=== PATIENT | female | born 1980 | race Caucasian/White ===

== ENCOUNTER 2022-12-07 13:50 | Emergency (ER) | payer OTHER ==
[2022-12-07 14:13] VITALS: BP 145/83
--- NOTE | 2022-12-07 15:11 | ED Physician Documentation ---
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 Mom of 2 kids Buying a house Hasn't been able to sleep x 2 weeks. 3 hrs of sleep night before last Tried CBD, benadryl, melatonin s relief. PD PAST MEDICAL HISTORY - Past Medical History Past Medical History: No - Past Surgical History Past Surgical History: No - Present Medications Home Medications: Ambulatory Orders Medication Instructions Recorded Confirmed Zolpidem Tartrate [Zolpidem 6.25 mg PO QPM PRN #30 tab 12/07/22 Tartrate ER] - Allergies Allergies/Adverse Reactions: Allergies Allergy/AdvReac Type Severity Reaction Status Date / Time prochlorperazine Allergy Headache Verified 12/07/22 14:10 [From Compazine] - Social History Does the pt smoke?: No Smoking Status: Never smoker Does the pt drink ETOH?: No Does the pt have substance abuse?: No - Immunizations Immunizations are current?: Yes PD ED PE NORMAL - Vitals Vital signs reviewed: Yes - General General: Alert and oriented X 3, No acute distress - HEENT HEENT: PERRL - Neuro Neuro: Alert and oriented X 3, Normal speech Eye Opening: Spontaneous Motor: Obeys Commands Verbal: Oriented GCS Score: 15 - Psych Psych: Normal mood, Normal affect Results - Vitals Vitals: Vital Signs - 24 hr 12/07/22 14:11 Temperature 36.5 C Heart Rate 72 Respiratory 16 Rate Blood Pressure 145/83 H O2 Saturation 99 Oxygen O2 Source Room air PD Medical Decision Making - ED course ED course: She has used ambien in the past and would like rx for same Departure - Departure Disposition: Home, Self Care Clinical Impression: Insomnia Qualifiers: Insomnia type: adjustment Qualified Code(s): F51.02 - Adjustment insomnia Condition: Good Record reviewed to determine appropriate education?: Yes Instructions: ED Insomnia Prescriptions: Zolpidem Tartrate [Zolpidem Tartrate ER] 6.25 mg PO QPM PRN #30 tab PRN Reason: Insomnia Comments: I sent prescription to [facility] in [place]. Do not drink or drive with this. Follwup with your PCM MAURA
== END 2022-12-07 15:24 | disposition home or self-care (01) ==
LOC: ED 13:50
DX: F51.02 Adjustment insomnia (principal)
CPT/HCPCS: 99281; 99283

== ENCOUNTER 2023-01-11 16:11 | Emergency (ER) | payer OTHER ==
[2023-01-11 16:29] VITALS: BP 136/95
--- NOTE | 2023-01-11 16:56 | ED Physician Documentation ---
History of Present Illness - Stated complaint Stated Complaint: INSOMNIA - Chief complaint Chief Complaint: General - History obtained from History obtained from: Patient - Additonal information Additional information: 42-year-old woman with insomnia. She has been sleeping and is under a lot of stress. I saw her a little over a month ago and received a prescription for Ambien which she requested. She has not made any progress and has not called for follow-up appointment with a PCP yet. No SI or HI. PD PAST MEDICAL HISTORY - Past Surgical History Past Surgical History: No - Present Medications Home Medications: Ambulatory Orders Medication Instructions Recorded Confirmed Zolpidem Tartrate [Zolpidem 6.25 mg PO QPM PRN #30 tab 12/07/22 Tartrate ER] traZODone [Desyrel] 50 mg PO HS #60 tablet 01/11/23 - Allergies Allergies/Adverse Reactions: Allergies Allergy/AdvReac Type Severity Reaction Status Date / Time prochlorperazine Allergy Headache Verified 01/11/23 16:26 [From Compazine] - Social History Does the pt smoke?: No Smoking Status: Never smoker Does the pt drink ETOH?: No Does the pt have substance abuse?: No - Immunizations Immunizations are current?: Yes PD ED PE NORMAL - Vitals Vital signs reviewed: Yes - General General: Alert and oriented X 3, No acute distress - HEENT HEENT: PERRL, EOMI - Neck Neck: Supple, no meningeal sign, No bony TTP - Neuro Neuro: Alert and oriented X 3, Normal speech - Psych Psych: Normal mood, Normal affect Results - Vitals Vitals: Vital Signs - 24 hr 01/11/23 16:23 Temperature 36.1 C L Heart Rate 63 Respiratory 16 Rate Blood Pressure 136/95 H O2 Saturation 100 Oxygen O2 Source Room air PD Medical Decision Making - ED course ED course: 42-year-old woman with chronic insomnia, under a lot of stress. She is here for refill but does not want Ambien again, that is not unreasonable especially since there are less addictive and tolerant options. Discussed with her that she absolutely must make a PCP appointment MAURA. Departure - Departure Disposition: Home, Self Care Clinical Impression: Insomnia Qualifiers: Insomnia type: unspecified Qualified Code(s): G47.00 - Insomnia, unspecified Condition: Good Record reviewed to determine appropriate education?: Yes Instructions: ED Insomnia Follow-Up: [facility] [Provider Group] Martine Jj ARNP [Physician No Access] - Prescriptions: traZODone [Desyrel] 50 mg PO HS #60 tablet Comments: I sent your prescription electronically to the [facility] pharmacy in [facility]. As discussed, it is imperative that you follow-up with a primary care physician for further refills and evaluation. Several are listed on this form. Return if worse.
== END 2023-01-11 17:14 | disposition home or self-care (01) ==
LOC: ED 16:11
DX: G47.00 Insomnia, unspecified (principal)
CPT/HCPCS: 99282; 99283

== ENCOUNTER 2023-11-28 12:38 | Emergency (ER) | payer OTHER ==
--- NOTE | 2023-11-28 13:32 | ED Physician Documentation ---
PD HPI HEADACHE - Stated complaint Stated Complaint: DIZZY/NAUSEA/SHAKING - Chief complaint Chief Complaint: General - History obtained from History obtained from: Patient - History of Present Illness Timing - onset: Yesterday Timing - onset during: Light activity Timing - details: Abrupt onset, Still present (The patient states she felt very shaky and generally weak when getting up and standing in the bathroom. She had already been up for the morning without any symptoms initially. However overnight she had had general aches as well as nausea with some episodes of vomiting and multiple diarrheas), Still present in ED Worst headache ever?: No: Worst headache ever? Location: Front, Global Quality: Throbbing, Aching Associated symptoms: Nausea, Vomiting, Weakness, Other (diarrhea). No: Fever (but has chills overnight), Numbness Review of Systems Constitutional: reports: Chills, Myalgias. denies: Fever Throat: denies: Sore throat Respiratory: reports: Cough GI: reports: Nausea, Vomiting, Diarrhea. denies: Abdominal Pain Neurologic: reports: Generalized weakness (and feeling shaky) PD PAST MEDICAL HISTORY - Past Medical History Past Medical History: No - Past Surgical History Past Surgical History: No - Present Medications Home Medications: Ambulatory Orders Medication Instructions Recorded Confirmed Multivitamin 1 tab PO DAILY 11/28/23 11/28/23 Ondansetron Odt [Zofran] 4 mg TL Q6H PRN #10 tablet 11/28/23 traZODone [Desyrel] 25 - 50 mg PO HS PRN #5 tablet 11/28/23 - Allergies Allergies/Adverse Reactions: Allergies Allergy/AdvReac Type Severity Reaction Status Date / Time prochlorperazine Allergy Headache Verified 11/28/23 12:41 [From Compazine] - Social History Does the pt smoke?: No Smoking Status: Never smoker Does the pt drink ETOH?: No Does the pt have substance abuse?: No - Immunizations Immunizations are current?: Yes - POLST Patient has POLST: No PD ED PE NORMAL - Vitals Vital signs reviewed: Yes - General General: Alert and oriented X 3, No acute distress, Well developed/nourished - HEENT HEENT: Pharynx benign. No: Moist mucous membranes - Neck Neck: Supple, no meningeal sign, No adenopathy - Cardiac Cardiac: RRR, No murmur - Respiratory Respiratory: No respiratory distress, Clear bilaterally - Abdomen Abdomen: Soft, Non tender - Derm Derm: Normal color, Warm and dry - Neuro Neuro: Alert and oriented X 3, No motor deficit, No sensory deficit, Normal speech, Other (shakiness of hands when holding them up. Symmetric motor and sesnory. ) Eye Opening: Spontaneous Motor: Obeys Commands Verbal: Oriented GCS Score: 15 Results - Vitals Vitals: Vital Signs - 24 hr 11/28/23 11/28/23 11/28/23 12:41 14:43 16:29 Temperature 36.8 C 37.1 C Heart Rate 88 85 82 Respiratory 18 14 18 Rate Blood Pressure 157/89 H 143/83 H 138/84 H O2 Saturation 99 98 100 Oxygen O2 Source Room air - Labs Labs: Laboratory Tests 11/28/23 11/28/23 14:10 14:10 WBC 12.5 H RBC 5.23 Hgb 15.6 Hct 46.6 MCV 89.1 MCH 29.8 MCHC 33.5 RDW 12.3 Plt Count 328 MPV 9.1 Neut # (Auto) 10.9 H Lymph # (Auto) 0.8 L Garrett # (Auto) 0.7 Eos # (Auto) 0.0 Baso # (Auto) 0.1 Absolute Nucleated RBC 0.00 Nucleated RBC % 0.0 Sodium 136 Potassium 4.5 Chloride 100 L Carbon Dioxide 23 Anion Gap 13.0 BUN 9 Creatinine 0.5 L Estimated GFR (MDRD) 135 Glucose 100 Calcium 9.1 Phosphorus 3.6 Magnesium 1.9 Total Bilirubin 1.0 AST 22 ALT 17 Alkaline Phosphatase 69 Total Protein 7.4 Albumin 4.7 Globulin 2.7 Albumin/Globulin Ratio 1.7 Lipase 20 PD Medical Decision Making - ED course Complexity details: re-evaluated patient (Her nausea is better and headache is moderately improved after Toradol and Inapsine. However she did get feeling jittery with it. Given Benadryl IV with improvement in the shakiness. Given 0.5 mg Dilaudid IV for still some headache.), considered differential (The patient has general headache, lightheaded, shakiness and overnight vomiting and diarrhea suggesting more of a flulike illness. She had had poor sleep for the last several nights as well by self-report. No high fevers.), d/w patient ED course: The patient states her headache and lightheaded and general symptoms are not like what she experiences with prior episodes of shunt malfunction. She would typically not get vomiting or diarrhea as well. Her current symptoms do sound more flulike with some general weakness/shakiness. She is given some IV fluids since she had had vomiting and diarrhea overnight and could be under hydrated. Given medication for headache and nausea. At this point we talked about seeing if she does okay with symptom medicine. We did check electrolytes and blood count and a basic chemistry panel which did not show any acute abnormalities here. As she is seeing her headache does not feel like shunt malfunction of which she has had several times in the past, shared decision was not to do any imaging such as CT. She does not seem meningitic and does not have any fevers or severe headache so I do not see a indication for lumbar puncture. We will treat symptoms with antiemetic and also medication for sleep and see how she does. She should use Tylenol or ibuprofen regularly at home. Recheck if not improved over the next few days. Departure - Departure Disposition: 01 Home, Self Care Clinical Impression: Nausea vomiting and diarrhea, Light-headed feeling, Adjustment insomnia Condition: Stable Record reviewed to determine appropriate education?: Yes Instructions: ED Diet Vomiting Diarrhea Prescriptions: traZODone [Desyrel] 25 - 50 mg PO HS PRN #5 tablet PRN Reason: Insomnia Ondansetron Odt [Zofran] 4 mg TL Q6H PRN #10 tablet PRN Reason: Nausea / Vomiting Comments: You are feeling of nausea and lightheaded along with shakiness seems perhaps likely to be of flu or viral type illness given the concurrent vomiting and diarrhea through the night. Some exacerbation of headache would be reasonable as well. Stay well-hydrated through the day. Ondansetron if needed for nausea. I would suggest Tylenol 500 to 650 mg 4 times daily for the next few days to help with pains and headache. Since your diarrhea has tapered this morning, you probably will not need antidiarrhea medicine itself. Your basic blood count and electrolytes and blood sugar blood tests are good. Continue usual medications. To help with your recent trouble sleeping/insomnia, I did write for a commonly u sed sleep medication. Use 1/2 to 1 tablet at night over the next few nights to try to help with sleep. Poor sleep may be causing some your symptoms as well but certainly would not cause the vomiting or diarrhea so still sounding at least partly like a viral flulike illness. I sent your prescriptions to your preferred pharmacy. Forms: PCP List Discharge Date/Time: 11/28/23 16:29
[2023-11-28 14:15] LABS: BASOPHILS # (AUTO) 0.1 10^3/uL (0.0-0.1); BASOPHILS % (AUTO) 0.7 %; EOSINOPHILS % (AUTO) 0.1 %; HCT - HEMATOCRIT 46.6 % (37.0-47.0); HGB - HEMOGLOBIN 15.6 g/dL (12.0-16.0); LYMPHOCYTES # (AUTO) 0.8 10^3/uL (1.5-3.5); LYMPHOCYTES % (AUTO) 6.2 %; MEAN CORPUSCULAR HEMOGLOBIN 29.8 pg (27.0-31.0); MEAN CORPUSCULAR HGB CONC 33.5 g/dL (32.0-36.0); MEAN CORPUSCULAR VOLUME 89.1 fL (81.0-99.0); MEAN PLATELET VOLUME 9.1 fL (7.9-10.8); MONOCYTES # (AUTO) 0.7 10^3/uL (0.0-1.0); MONOCYTES % (AUTO) 5.7 %; NEUTROPHILS # (AUTO) 10.9 10^3/uL (1.5-6.6); NEUTROPHILS % (AUTO) 86.9 %; PLT - PLATELET COUNT 328 10^3/uL (130-450); RED BLOOD COUNT 5.23 10^6/uL (4.20-5.40); RED CELL DISTRIBUTION WIDTH 12.3 % (12.0-15.0); WHITE BLOOD COUNT 12.5 x10^3/uL (4.8-10.8)
[2023-11-28 14:24] LABS: MAGNESIUM 1.9 mg/dL (1.7-2.3)
[2023-11-28] MEDS: DROPERIDOL 5 MG/2 ML VIAL IVP STA (14:27)
[2023-11-28] MEDS: SODIUM CHLORIDE 0.9% 1,000 ML IV STA (14:27)
[2023-11-28] MEDS: KETOROLAC 15 MG/ML VIAL IVP STA (14:27)
[2023-11-28 14:30] LABS: ALBUMIN 4.7 g/dL (3.2-5.5); ALBUMIN/GLOBULIN RATIO 1.7 (1.0-2.2); CALCIUM 9.1 mg/dL (8.5-10.3); CREATININE 0.5 mg/dL (0.6-1.3); PHOSPHORUS 3.6 mg/dL (2.5-5.0); POTASSIUM 4.5 mmol/L (3.5-4.5); TOTAL PROTEIN 7.4 g/dL (6.4-8.9)
[2023-11-28] MEDS: diphenhydrAMINE INJ 50 MG/ML VIAL IVP STA (14:54)
[2023-11-28 16:33] VITALS: BP 138/84; O2SAT 100
[2023-11-28] MEDS: HYDROmorphone 0.5 MG/0.5 ML SYRINGE IVP STA (16:51)
== END 2023-11-28 16:29 | disposition home or self-care (01) ==
LOC: ED 12:38
DX: R11.2 Nausea with vomiting, unspecified (principal); R51.9 Headache, unspecified; R42 Dizziness and giddiness; F51.02 Adjustment insomnia
CPT/HCPCS: 36415; 80053; 83690; 83735; 84100; 85025; 96361; 96374; 96375; 99284; J1200